=== PATIENT | male | born 1960 | race Caucasian/White ===

== ENCOUNTER → 2017-01-13 | Emergency (ER) | payer OTHER ==
[2017-01-13 15:03] VITALS: BP 146/98; PULSE 80; TEMP 98; BMI 25.8
--- NOTE | 2017-01-13 17:06 | PDOC ---
History of Present Illness - General History Source: Patient Exam Limitations: No Limitations <Jordan Vela - Last Filed: 01/13/17 17:06> - General History Source: Patient Exam Limitations: No Limitations - History of Present Illness Initial Comments: 01/13/17 17:10 The patient is a 56 year old male, with a significant past medical history of HTN, enlarged prostate and diabetes, who presents to the emergency department with abdominal pain for the past week that has exacerbated today. He reports that the pain is localized in the right upper quadrant, he describes his pain as mild without radiation. He denies any modifying factors. He denies taking anything for the pain. The patient denies chest pain, shortness of breath, headache and dizziness. Denies fever, chills, nausea, vomit, diarrhea and constipation. Denies dysuria, frequency, urgency and hematuria. Allergies: None Past surgical history: Left knee arthroscopy surgery Social history: He reports social alcohol use. He denies tobacco and drug use PCP Dr. Glenna Lala GI - Dr. Mullins Urologist - Dr. Villavicencio <Akhil Stone - Last Filed: 01/13/17 17:12> - General Chief Complaint: Pain Stated Complaint: RT SIDE PAIN Time Seen by Provider: 01/13/17 16:52 Past History - Past Medical History Diabetes: Yes HTN: Yes - Surgical History Abdominal Surgery: Yes (hernia repair) - Psycho/Social/Smoking Cessation Hx Anxiety: No Suicidal Ideation: No Smoking History: Never smoked Have you smoked in the past 12 months: No Information on smoking cessation initiated: No Hx Alcohol Use: No Drug/Substance Use Hx: No Substance Use Type: None <Jordan Vela - Last Filed: 01/13/17 17:06> <Akhil Stone - Last Filed: 01/13/17 17:12> - Past Medical History Allergies/Adverse Reactions: Allergies Allergy/AdvReac Type Severity Reaction Status Date / Time No Known Allergies Allergy Verified 01/13/17 15:00 Home Medications: Ambulatory Orders Alfuzosin HCl [Alfuzosin HCl ER] 10 mg PO HS 10/30/15 Aspirin [ASA -] 81 mg PO DAILY 10/30/15 Metformin HCl 500 mg PO DAILY 10/30/15 Olmesartan/Amlodipin/Hcthiazid [Tribenzor 40-10-25 mg Tablet] 1 each PO DAILY Review of Systems - Review of Systems Able to Perform ROS?: Yes Comments:: 01/13/17 17:11 GENERAL/CONSTITUTIONAL: No fever or chills. No weakness. HEAD, EYES, EARS, NOSE AND THROAT: No change in vision. No ear pain or discharge. No sore throat. CARDIOVASCULAR: No chest pain or shortness of breath RESPIRATORY: No cough, wheezing, or hemoptysis. GASTROINTESTINAL: (+) Right upper quadrant tenderness. No nausea, vomiting, diarrhea or constipation. GENITOURINARY: No dysuria, frequency, or change in urination. MUSCULOSKELETAL: No joint or muscle swelling or pain. No neck or back pain. SKIN: No rash NEUROLOGIC: No headache, vertigo, loss of consciousness, or change in strength/ sensation. ENDOCRINE: No increased thirst. No abnormal weight change HEMATOLOGIC/LYMPHATIC: No anemia, easy bleeding, or history of blood clots. ALLERGIC/IMMUNOLOGIC: No hives or skin allergy. <Akhil Stone - Last Filed: 01/13/17 17:12> *Physical Exam - Vital Signs Last Vital Signs Temp Pulse Resp BP Pulse Ox 98 F 80 18 146/98 100 01/13/17 15:00 01/13/17 15:00 01/13/17 15:00 01/13/17 15:00 01/13/17 15:00 <Jordan Vela - Last Filed: 01/13/17 17:06> - Vital Signs Last Vital Signs Temp Pulse Resp BP Pulse Ox 98 F 80 18 146/98 100 01/13/17 15:00 01/13/17 15:00 01/13/17 15:00 01/13/17 15:00 01/13/17 15:00 - Physical Exam Comments: 01/13/17 17:11 GENERAL: Awake, alert, and fully oriented, in no acute distress HEAD: No signs of trauma, normocephalic, atraumatic EYES: PERRLA, EOMI, sclera anicteric, conjunctiva clear ENT: Auricles normal inspection, hearing grossly normal, nares patent, oropharynx clear without exudates. Moist mucosa NECK: Normal ROM, supple, no lymphadenopathy, JVD, or masses LUNGS: No distress, speaks full sentences, clear to auscultation bilaterally HEART: Regular rate and rhythm, normal S1 and S2, no murmurs, rubs or gallops, peripheral pulses normal and equal bilaterally. ABDOMEN: Negative [place]. Soft, nontender, normoactive bowel sounds. No guarding, no rebound. No masses EXTREMITIES: Normal inspection, Normal range of motion, no edema. No clubbing or cyanosis. NEUROLOGICAL: Cranial nerves II through XII grossly intact. Normal speech, normal gait, no focal sensorimotor deficits SKIN: Warm, Dry, normal turgor, no rashes or lesions noted. <Akhil Stone - Last Filed: 01/13/17 17:12> Medical Decision Making - Medical Decision Making 01/13/17 17:06 A portion of this note was documented by scribe services under my direction. I have reviewed the details of the note, within reason, and agree with the documentation with the following case summary and management plan written by me. Patient treated in the ED. Nursing notes are reviewed and incorporated into the medical decision-making. Vital signs reviewed. Peripheral IV access obtained by the nurse, laboratory studies are drawn and sent, reviewed and interpreted by myself. Vital Signs Temp Pulse Resp BP Pulse Ox 98 F 80 18 146/98 100 01/13/17 15:00 01/13/17 15:00 01/13/17 15:00 01/13/17 15:00 01/13/17 15:00 56-year-old male with history of hypertension, diabetes, hyperlipidemia, gallstones presents with right upper quadrant pain today. Patient reports that he felt initially intermittent right upper quadrant discomfort that lasted this morning but resolved. Patient denies fevers, chills, nausea, vomiting. Denies any symptoms and does not want any pain medications. Initially, I offered the patient to perform a right upper quadrant ultrasound and some blood work the patient is now asymptomatic. Given the business of the ED, patient prefers to be discharged to follow-up with his doctor. Given that the patient is well- appearing and afebrile and with no abdominal tenderness, I will outpatient be discharged follow-up with his doctor. Patient agrees with plan. Return precautions given. I discussed the physical exam findings, ancillary test results and final diagnoses with the patient. I answered all of the patient's questions. The patient was satisfied with the care received and felt comfortable with the discharge plan and treatment plan. The patient will call their primary care physician within 24 hours to arrange follow-up and will return to the Emergency Department with any new, persistant or worsening symptoms. <Jordan Vela - Last Filed: 01/13/17 17:06> *DC/Admit/Observation/Transfer - Discharge Dispostion Admit: No <Jordan Vela - Last Filed: 01/13/17 17:06> - Attestations Scribe Attestion: 01/13/17 17:11 Documentation prepared by Akhil Stone, acting as medical data entry clerk for Jordan Vela MD <Akhil Stone - Last Filed: 01/13/17 17:12> Diagnosis at time of Disposition: Abdominal pain Qualifiers: Abdominal location: right upper quadrant Qualified Code(s): R10.11 - Right upper quadrant pain - Discharge Dispostion Disposition: HOME Condition at time of disposition: Good - Referrals Referrals: Glenna Lala MD [Primary Care Provider] - Myron Davison MD [Staff Physician] - - Patient Instructions Printed Discharge Instructions: DI for Abdominal Pain-Adult Additional Instructions: Please follow-up with her regular doctor regarding her abdominal pain. If you have high fevers or worsening abdominal pain, please return to the ER for further evaluation.
== END | disposition home or self-care (01) ==
LOC: JER 14:48
DX: R10.11 Right upper quadrant pain (principal); I10 Essential (primary) hypertension; E11.9 Type 2 diabetes mellitus without complications; Z79.84 Long term (current) use of oral hypoglycemic drugs; N40.0 Benign prostatic hyperplasia without lower urinary tract symptoms
CPT/HCPCS: 99282-25

== ENCOUNTER 2024-02-12 04:44 | Day surgery (SDC) | payer OTHER ==
[2024-02-06 08:53] VITALS: BMI 29.4
[2024-02-12 10:01] VITALS: TEMP 97.9
[2024-02-12 14:57] VITALS: RESP 18
[2024-02-12 14:59] VITALS: BP 141/76; PULSE 67
== END 2024-02-12 10:38 | disposition home or self-care (01) ==
LOC: JASU-ENDO 04:44
PROVIDERS: ATTEND Internal Medicine Gastroenterology
PROC: 0DJD8ZZ Inspection of Lower Intestinal Tract, Via Natural or Artificial Opening Endoscopic (ICD-10-PCS; principal; 2024-02-12 09:00)
DX: Z12.11 Encounter for screening for malignant neoplasm of colon (principal); K57.30 Diverticulosis of large intestine without perforation or abscess without bleeding; K64.8 Other hemorrhoids; I10 Essential (primary) hypertension; E11.9 Type 2 diabetes mellitus without complications; Z79.84 Long term (current) use of oral hypoglycemic drugs
CPT/HCPCS: 82962